=== PATIENT | female | born 2000 | race Two or more races ===

== ENCOUNTER 2025-03-02 19:54 | Emergency (ER) | payer OTHER ==
[~2025-03-02] VITALS: Ht 162.6 cm; Wt 63.0 kg
[2025-03-02 22:03] VITALS: BP 130/77; PULSE 96; RESP 16; TEMP 99.4; O2SAT 97
[2025-03-02] MEDS ORDERED: ACET500T58 PO (22:06)
--- NOTE | 2025-03-02 22:08 | ED.PDOC ---
Musculoskeletal HPI Comments 24-year-old female presents to ER with complaints of left foot pain x1 day. Patient reports that she started experiencing 9/10 pain with associated swelling/bruising to lateral aspect of left foot at 3:30 p.m. prior to arrival to ER s/p rolling her left foot inward while stepping down from a curb at work. Denies falling and denies any other reported injuries. Patient presents to ER ambulatory on arrival, favoring right leg on ambulation and denies use of medications for current symptoms. Denies left ankle pain, numbness/tingling or any further symptoms/complaints Chief Complaint: Lower Extremity Time Seen by MD: 19:59 Primary Care Provider: UNKNOWN Reviewed Notes: Nurses Notes, Medications, Allergies Allergies: Coded Allergies: NO KNOWN ALLERGIES (Unverified , 03/02/25) Home Meds Active Scripts Acetaminophen (Acetaminophen) 500 Mg Tab, 500 MG PO Q4HPRN, #30 TAB 0 Refills Prov:HARLEYBOZENA 03/02/25 Information Source: Patient Mode of Arrival: Ambulatory Past Medical History PAST MEDICAL HISTORY: Denies Surgical History: Denies all surgeries COAL MINER History: No Pertinent COAL MINER History Family History Family History: Unknown Social History Smoker: Non-Smoker Alcohol: Denies ETOH Use Drugs: Denies Drug Use Lives In: Home Constitutional: denies: chills, diaphoresis, fatigue, fever, malaise, sweats, weakness, others EENTM: denies: blurred vision, double vision, ear bleeding, ear discharge, ear drainage, ear pain, ear ringing, eye pain, eye redness, hearing loss, mouth pain, mouth swelling, nasal discharge, nose bleeding, nose congestion, nose pain, photophobia, tearing, throat pain, throat swelling, voice changes, others Respiratory: denies: cough, hemoptysis, orthopnea, SOB at rest, shortness of breath, SOB with excertion, stridor, wheezing, others Cardiovascular: denies: chest pain, dizzy spells, diaphoresis, Dyspnea on exertion, edema, irregular heart beat, left arm pain, lightheadedness, palpitations, PND, syncope, others Gastrointestinal: denies: abdomen distended, abdominal pain, blood streaked bowels, constipated, diarrhea, dysphagia, difficulty swallowing, hematemesis, melena, nausea, poor appetite, poor fluid intake, rectal bleeding, rectal pain, vomiting, others Genitourinary: denies: abnormal vagina bleeding, burning, dyspareunia, dysuria, flank pain, frequency, hematuria, incontinence, pain, , vagina discharge, urgency, others Neurological: denies: dizziness, fainting, headache, left sided numbness, left sided weakness, numbness, paresthesia, pre-existing deficit, right sided numbness, right sided weakness, seizure, speech problems, tingling, tremors, weakness, others Musculoskeletal: reports: others (As stated in HPI) Integumetry: reports: others (As stated in HPI) Allergic/Immunocompromised: denies: Difficulty Healing, Frequent Infections, Hives, Itching, others Hematologic/Lymphatic: denies: anemia, blood clots, easy bleeding, easy bruising, swollen glands, others Endocrine: denies: excessive hunger, excessive sweating, excessive thirst, excessive urination, flushing, intolerance to cold, intolerance to heat, unexplained weight gain, unexplained weight loss, others Psychiatric: denies: anxiety, bipolar disorder, depression, hopeless, panic disorder, schizophrenia, sleepless, suicidal, others Physical Exam General Appearance: Mild Distress HEENT: PERRL/EOMI Neck: Full Range of Motion, Non-Tender, Normal Respiratory: Chest Non-Tender, Lungs Clear, No Accessory Muscle Use, No Respiratory Distress, Normal Breath Sounds Cardiovascular: No Murmur, No Gallop, Regular Rate/Rhythm Breast Exam: Deferred Gastrointestinal: NOT DONE Genitalia: Deferred Pelvic: Deferred Rectal: Deferred Extremities: Normal capillary refill, Normal range of motion Musculoskeletal : Extremity Location: Foot (TTP/mild swelling/ecchymosis noted to left 5th metatarsal. No TTP to left ankle or other TTP to left lower extremity noted. Pulses intact. Patient favors right leg on ambulation) Neurologic: Alert, No Motor Deficits, Normal Affect, Normal Mood, No Sensory Deficits Cerebellar Function: Normal Reflexes: Normal Skin: Dry, Warm Peripheral Pulses: 2+ dorsalis pedis (R), 2+ dorsalis pedis (L), 2+ Radial (R), 2+ Radial (L), 2+ Brachial (R), 2+ Brachial (L) Lymphatic: No Adenopathy Was a procedure done? Was a procedure done?: No Sedation Sedation?: No Differential Diagnosis EXT Differential Diagnosis: Dislocation, Laceration, Neurovascular injury X-Ray, Labs, Meds, VS Vital Signs Date Time Temp Pulse Resp B/P (MAP) Pulse Ox O2 Delivery O2 Flow Rate FiO2 03/02/25 22:03 Room Air* 0 21 03/02/25 22:03 99.4 96 16 130/77 (94) 97 99.4 03/02/25 19:55 99.4 96 16 130/77 97 99.4 PATIENT: KARLA CAMARENACCT: [id number]: [id number] : 2000 LOC: ER ROOM / BED: / AGE / SEX: 24 / F ADM STATUS: REG ER SERVICE 56 ORDERING PHYSICIAN: BOZENA SOUZA PROCEDURE(s): LFOOT - L FOOT 3 VIEW XRAY REASON: left foot pain ORDER NUMBER(s): [id number], ACCESSION NUMBER(s): [id number] CLINICAL INDICATION: left foot pain TECHNIQUE: 3 views XY L FOOT 3 VIEW XRAY Comparison: None FINDINGS: Moderately displaced fragment at the 5th metatarsal base. No significant associated soft tissue swelling. Remainder of osseous structures are intact. No significant degenerative change. IMPRESSION: Displaced fragment of the 5th metatarsal styloid without associated soft tissue swelling may represent acute or nonacute fracture, or prior apophyseal injury. ATED BY: JAMES GUTIERREZ MD DICTATED DATE/TIME: 03/02/252227 SIGNED BY: JAMES GUTIERREZ MD SIGNED DATE/TIME: 03/02/252227 CC: Left foot x-ray reviewed Left posterior short leg splint applied Patient neurovascularly intact Crutches ordered, patient educated on proper use and advised on use at all times/non-weight bearing left leg Advised on elevation and alternate ice on/off as needed for pain/swelling Advised to f/u with PCP, workmans comp PCP and orthopedics/podiatry in 1-2 days Patient verbalized understanding and agreeable with current plan of care Advised to return to ER immediately if symptoms worsen Images Reviewed?: Images reviewed and evaluated by me Time of 1ST Reevaluation: 22:06 Reevaluation 1ST: N/A Patient Education/Counseling: Diagnosis, Treatment, Prognosis, Need For Follow Up Family Education/Counseling: No Family Present Departure 1 Departure Time of Disposition: 22:47 Impression: Primary Impression: Foot fracture, left Qualified Codes: S92.902A - Unspecified fracture of left foot, initial encou nter for closed fracture Disposition: HOME / SELF CARE / HOMELESS Condition: Stable e-Prescriptions Acetaminophen (Acetaminophen) 500 Mg Tab 500 MG PO Q4HPRN, #30 TAB 0 Refills Prov: BOZENA SOUZA 03/02/25 Discharged With: Friend Critical Care Note Critical Care Time?: No Stability Stability form required: No Heart Score Heart Score: Heart Score Response (Comments) Value History N/A 0 EKG N/A 0 Age N/A 0 Risk Factors N/A 0 Troponin N/A 0 Total 0 BOZENA SOUZA Mar 02, 2025 22:08
--- NOTE | 2025-03-02 22:30 | DVH ---
CLINICAL INDICATION: left foot pain TECHNIQUE: 3 views XY L FOOT 3 VIEW XRAY Comparison: None FINDINGS: Moderately displaced fragment at the 5th metatarsal base. No significant associated soft tissue swelling. Remainder of osseous structures are intact. No significant degenerative change. IMPRESSION: Displaced fragment of the 5th metatarsal styloid without associated soft tissue swelling may represent acute or nonacute fracture, or prior apophyseal injury.
== END 2025-03-02 23:10 | disposition home or self-care (01) ==
LOC: ER 19:54
DX: S92.902A Unspecified fracture of left foot, initial encounter for closed fracture (principal); X58.XXXA Exposure to other specified factors, initial encounter; Y93.89 Activity, other specified; Y92.89 Other specified places as the place of occurrence of the external cause; Y99.8 Other external cause status
CPT/HCPCS: 29515; 73630